=== PATIENT | female | born 1940 | race Two or more races ===

== ENCOUNTER 2016-12-17 00:21 | Inpatient (IN) | payer OTHER ==
[~2016-12-17] VITALS: Ht 160 cm; Wt 49.0 kg
--- NOTE | 2016-12-17 00:30 | NUR ---
TO BED 12 BIB [employer] AND [employer] PT FOUND WANDERING ON STREETS, PT DENIES ANY COMPLAINTS. PT AAOX4 NO ACUTE DISTRESS NOTED, RESP EVEN AND UNLABORED. PT DENIES PAIN OR DISCOMFORT AT THIS TIME.
[2016-12-17 01:01] LABS: BASOPHILS % (AUTO) 0.6 % (0.0-2.0); EOSINOPHILS # (AUTO) 0.6 /CMM (0.0-0.7); EOSINOPHILS % (AUTO) 7.6 % (0.0-6.0); HEMATOCRIT 24 % (33-45); HEMOGLOBIN 7.6 g/dL (11.5-14.8); LYMPHOCYTES # (AUTO) 2.1 /CMM (0.8-4.8); LYMPHOCYTES % (AUTO) 27.8 % (20.0-44.0); MEAN CORPUSCULAR HEMOGLOBIN 22 PG (26.0-33.0); MEAN CORPUSCULAR HGB CONC 32 g/dl (31.0-36.0); MEAN CORPUSCULAR VOLUME 70 fL (82-100); MONOCYTES # (AUTO) 0.8 /CMM (0.1-1.30); MONOCYTES % (AUTO) 11.3 % (2.0-12.0); NEUTROPHILS # (AUTO) 3.9 /CMM (1.8-8.9); NEUTROPHILS % (AUTO) 52.7 % (43.0-81.0); PLATELET COUNT (AUTO) 270 /CMM (150-450); RDW COEFFICIENT OF VARIATION 17.1 (11.5-15.0); RED BLOOD CELL COUNT(AUTO) 3.42 MIL/uL (4.0-5.2); WHITE BLOOD COUNT (AUTO) 7.4 K/uL (4.3-11.0)
[2016-12-17 01:08] LABS: CALCIUM, SERUM 8.6 mg/dL (8.5-10.1); CARBON DIOXIDE 25 mmol/L (21-32); CHLORIDE 100 mmol/L (98-107); CREATININE 0.9 mg/dL (0.6-1.3); GLUCOSE 84 mg/dL (74-106); POTASSIUM 3.6 mmol/L (3.5-5.1); SODIUM SERUM 135 mmol/L (136-145); UREA NITROGEN, BLOOD 26 mg/dL (7-18)
--- NOTE | 2016-12-17 01:13 | NUR ---
INOCENCIA LORENZOW AT BEDSIDE TO TOOTIE BUSTAMANTE.
[2016-12-17 01:14] LABS: ACETAMINOPHEN 0 ug/ml (10-30); ALANINE AMINOTRANSFERASE 19 U/L (12-78); ALBUMIN 3.8 g/dL (3.4-5.0); ALCOHOL, BLOOD < 3 mg/dL (0-0); ALKALINE PHOSPHATASE 70 U/L (46-116); ASPARTATE AMINOTRANSFERASE 32 U/L (15-37); BILIRUBIN,DIRECT 0.2 mg/dL (0.0-0.2); BILIRUBIN,TOTAL 0.7 mg/dL (0.2-1.0); SALICYLATE 0.3 mg/dL (2.8-20.0); TOTAL PROTEIN, SERUM 7.5 g/dL (6.4-8.2)
[2016-12-17 01:45] LABS: EOSINOPHILS % (MANUAL) 9 % (0-4); LYMPHOCYTES % (MANUAL) 28 % (16-48); MONOCYTES % (MANUAL) 7 % (0-11.0); NEUTROPHILS % (MANUAL) 56 (42-76)
[2016-12-17 02:46] LABS: APPEARANCE,URINE CLEAR (CLEAR); BILIRUBIN,URINE NEGATIVE (NEGATIVE); BLOOD, URINE NEGATIVE Ery/uL (NEGATIVE); COLOR,URINE YELLOW (YELLOW); KETONES,URINE NEGATIVE (NEGATIVE); LEUKOCYTE ESTERASE ,URINE 1+ (NEGATIVE); NITRITE, URINE NEGATIVE (NEGATIVE); PH,URINE 5.5 (5.0-8.0); PROTEIN,URINE NEGATIVE (NEGATIVE); UGLUCOSE NEGATIVE (NEGATIVE); UROBILINOGEN,URINE 0.2 EU/dL (0.2)
[2016-12-17 02:58] LABS: BACTERIA,URINE 3+ /HPF (None Seen); RBC,URINE NONE SEEN /HPF (0-2); SQUAMOUS EPITHELIAL CELL,UR Few /HPF (None Seen)
--- NOTE | 2016-12-17 03:09 | NUR ---
PT AAOX4 NO ACUTE DISTRESS NOTED, RESP EVEN AND UNLABORED.
--- NOTE | 2016-12-17 04:49 | NUR ---
INOCENCIA LORENZOW PLACE PT ON 5150 HOLD.
--- NOTE | 2016-12-17 04:55 | NUR ---
REPORT CALLED TO OLGA JARA.
[2016-12-17] MEDS ORDERED: MAG HYDROX/AL HYDROX/SIMETH 30 ML UDC PO PRN (06:00)
[2016-12-17] MEDS ORDERED: MAGNESIUM HYDROXIDE 30 ML UDC PO PRN (06:00)
[2016-12-17] MEDS ORDERED: LORAZEPAM 0.5 MG TABLET PO PRN (06:00)
[2016-12-17] MEDS ORDERED: ACETAMINOPHEN 325 MG TABLET PO PRN (06:00)
--- NOTE | 2016-12-17 06:30 | NUR ---
ADMISSION NOTES RN: ADMITTED THIS 76 Y/O FEMALE. PT IS ON 5150 HOLD FOR GD UNDER THE CARE OF DR BURTON AND DR GOODE. PER HOLD PT IS WANDERING AND TAKEN BY NEIGHBORS TO HELP WHEN THEY REPLIED. PT IS DEPRESSED, ANXIOUS, JUDGEMENT IS IMPAIRED POOR INSIGHT. PSYCH DX OF PSYCHOSIS. UPON FACE TO FACE ASSESSMENT PATIENT IS ALERT AND ORIENTED X1, CONFUSED, DISORGANIZED, DISORIENTED, DISHEVELED. V/S STABLE. PATIENT REFUSED TO SIGN ADMISSION PAPERWORK, COSIGNED BY 2 RN, BELONGINGS CHECKED, NO CONTRABAND. SKIN ASSESSMENT DONE. SKIN IS CLEAR AND INTACT EXCEPT FOR HEMORRHOIDS. WILL CONTINUE TO MONITOR FOR SAFETY AND BEHAVIOR [id number].
[2016-12-17 06:42] VITALS: BP 122/60
[2016-12-17 06:44] VITALS: BP 122/60
[2016-12-17 08:00] VITALS: BP 111/65
[2016-12-17 08:42] LABS: CHOLESTEROL 126 mg/dL (<200); HDL CHOLESTEROL 38 mg/dL (40-60); LDL 84 mg/dL (0-99); TRIGLYCERIDES 24 mg/dL (30-150)
--- NOTE | 2016-12-17 13:50 | NUR ---
RAVI spoke to Rosa from [facility] intake department to verify insurance line person for a review. She stated she will call and will find out. RAVI will follow up.
--- NOTE | 2016-12-17 14:03 | NUR ---
DR. ZELAYA NOTIFIED ABOUT THAT PT. IS UNDER HIS SERVICE AND AND GAVE ORDERS AND IRON PANEL AND FERRITIN AND HE WILL SEE PT. TOMORROW. Addendum: 12/17/16 at 1421 by JIMMY YOST RN ORTHODONTIC TREATMENT COORDINATOR MADE AWARE ABOUT THE HEMOGLOBIN OF 7.6 NAD MADE AWARE OF THE RECTAL TISSUE PROTRUDES.
[2016-12-17 14:38] LABS: IRON, SERUM 28 ug/dl (50-175); TOTAL IRON BINDING CAPACITY 462 ug/dl (250-450)
[2016-12-17 14:55] LABS: FERRITIN 16 ng/mL (8-388)
--- NOTE | 2016-12-17 15:35 | NUR ---
UR Update: Red Lee at [facility] admitting, SW to follow up on Tuesday December 20, 2016 Insurance: [employer] NET SENIOR IPA : LOI PERRY Assigned: MAHENDRA RODRIGUEZ PH: Tracking # : [id number] APPROVED FROM 12/17/16---12/20/16
[2016-12-17 16:00] VITALS: BP_SYST 142; BP_SYST 171; BP_DIAS 62; BP_DIAS 63
[2016-12-17] MEDS: busPIRone 5 MG TABLET PO SCH (16:50)
--- NOTE | 2016-12-17 18:19 | NUR ---
Notified Dr. Christianson about the labs. Iron 28, Ferritin 16 and TIBC 462 and % saturation 6. With an order of Ferrous Sulfate 325 mg po BID.
[2016-12-17 20:00] VITALS: BP 116/60
[2016-12-17] MEDS: FERROUS SULFATE (325 MG) 325 MG/TAB TABLET PO SCH (20:16)
--- NOTE | 2016-12-17 20:22 | NUR ---
RN GPS NOTES FREOUS SULFATE 325 MG PO GIVEN AT 2016 / REASON DELIVERD BY PHARMACY AT THIS TIME .
[2016-12-17] MEDS: DONEPEZIL 5 MG TABLET PO SCH (21:24)
--- NOTE | 2016-12-18 06:31 | NUR ---
RN GPS NOTE PT .REMAINED IN STABLE CONDITION RESTING IN HER BED ,NO ACUTE DISTRESS NOTED ATTENDED ALL NEEDS AND ANTICIPATED , DENIES SI/ HI AT THIS TIME, ENDORSE TO NEXT SHIFT NURSE. WILL ENDORSE TO NEXT SHIFT FOR CONTINUITY OF CARE
--- NOTE | 2016-12-18 06:50 | NUR ---
RN GPS NOTE PT .REMAINED IN STABLE CONDITION RESTING IN HIS BED ,NO ACUTE DISTRESS NOTED ATTENDED ALL NEEDS AND ANTICIPATED , DENIES SI/ HI AT THIS TIME, ENDORSE TO NEXT SHIFT NURSE. WILL ENDORSE TO NEXT SHIFT FOR CONTINUITY OF CARE
[2016-12-18 07:21] LABS: BASOPHILS % (AUTO) 0.4 % (0.0-2.0); EOSINOPHILS # (AUTO) 0.5 /CMM (0.0-0.7); HEMATOCRIT 25 % (33-45); LYMPHOCYTES # (AUTO) 1.5 /CMM (0.8-4.8); LYMPHOCYTES % (AUTO) 23.3 % (20.0-44.0); MEAN CORPUSCULAR HEMOGLOBIN 23 PG (26.0-33.0); MEAN CORPUSCULAR HGB CONC 32 g/dl (31.0-36.0); MEAN CORPUSCULAR VOLUME 71 fL (82-100); MONOCYTES # (AUTO) 0.6 /CMM (0.1-1.30); NEUTROPHILS # (AUTO) 3.7 /CMM (1.8-8.9); NEUTROPHILS % (AUTO) 59.3 % (43.0-81.0); PLATELET COUNT (AUTO) 302 /CMM (150-450); RDW COEFFICIENT OF VARIATION 17.5 (11.5-15.0); RED BLOOD CELL COUNT(AUTO) 3.57 MIL/uL (4.0-5.2); WHITE BLOOD COUNT (AUTO) 6.3 K/uL (4.3-11.0)
[2016-12-18 07:35] LABS: ALANINE AMINOTRANSFERASE 21 U/L (12-78); ALBUMIN 3.5 g/dL (3.4-5.0); ALKALINE PHOSPHATASE 66 U/L (46-116); ASPARTATE AMINOTRANSFERASE 31 U/L (15-37); BILIRUBIN,TOTAL 0.3 mg/dL (0.2-1.0); CALCIUM, SERUM 8.8 mg/dL (8.5-10.1); CARBON DIOXIDE 26 mmol/L (21-32); CHLORIDE 106 mmol/L (98-107); CREATININE 0.7 mg/dL (0.6-1.3); GLUCOSE 81 mg/dL (74-106); POTASSIUM 4.3 mmol/L (3.5-5.1); SODIUM SERUM 140 mmol/L (136-145); TOTAL PROTEIN, SERUM 7.3 g/dL (6.4-8.2); UREA NITROGEN, BLOOD 19 mg/dL (7-18)
[2016-12-18 08:00] VITALS: BP 135/69
[2016-12-18 08:32] LABS: EOSINOPHILS % (MANUAL) 5 % (0-4); LYMPHOCYTES % (MANUAL) 21 % (16-48); MONOCYTES % (MANUAL) 6 % (0-11.0); NEUTROPHILS % (MANUAL) 68 (42-76)
[2016-12-18] MEDS: busPIRone 5 MG TABLET PO SCH ×2 (08:33→17:23)
[2016-12-18] MEDS: FERROUS SULFATE (325 MG) 325 MG/TAB TABLET PO SCH ×2 (08:33→17:44)
[2016-12-18 16:00] VITALS: BP 126/59
[2016-12-18 20:00] VITALS: BP 137/67
--- NOTE | 2016-12-18 20:00 | NUR ---
RN INITIAL NOTES: PT AMBULATING IN THE HALLWAY, PT IS A/O X2, COOPERATIVE, RESPIRATION EVEN AND UNLABORED, PT CAN DE REDIRECTED, PT DENIES ANY SI/HI, PT NOTED TO HAVE LIMITED CONCENTRATION, POOR JUDGMENT. ALSO HAS PERIODIC EPISODE OF WANDERING AROUND. 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
[2016-12-18] MEDS: DONEPEZIL 5 MG TABLET PO SCH (22:02)
--- NOTE | 2016-12-19 06:33 | NUR ---
rn closing notes: pt in bed, awake, remains a/o x2, med complaint, denies any pain or discomfort at this time, no untoward event happened throughout the shift, vs remains stable, needs attended, will endorse to day rn for wendie.
[2016-12-19 08:00] VITALS: BP 129/70
[2016-12-19] MEDS: busPIRone 5 MG TABLET PO SCH ×3 (09:00→16:54)
[2016-12-19] MEDS: FERROUS SULFATE (325 MG) 325 MG/TAB TABLET PO SCH ×3 (09:00→16:54)
[2016-12-19 16:00] VITALS: BP 111/65
[2016-12-19 20:07] VITALS: BP 122/66
[2016-12-19] MEDS: DONEPEZIL 5 MG TABLET PO SCH (22:00)
--- NOTE | 2016-12-19 22:00 | NUR ---
GPS RN: PATIENT REFUSED WEEKLY SKIN ASSESSMENT PICTURE TAKING, PER PATIENT, "I AM TOO ASHAMED OF DOING THAT IN FRONT OF YOU" TOLD THE PATIENT THAT IT WILL BE DONE WITH A FEMALE NURSE. PATIENT STILL REFUSED. WILL ENCOURAGE PATIENT IN THE MORNING.
--- NOTE | 2016-12-19 22:55 | NUR ---
GPS RN NOTES: NOTED THIS PATIENT TO BE PARANOID AND ANXIOUS DURING Q15 MIN CHECKS, ENCOURAGED PATIENT TO VERBALIZE FEELING AND CONCERNS. PATIENT REFUSED HER 2200 SCHEDULED MED- ARICEPT 5MG PO QHS, PER PATIENT "I DON'T NEED THAT MEDICATION. WE NEED TO BE ALERT FROM ALL THE PEOPLE HERE, THE MEN, WOMEN." REASSURED PATIENT OF HER SAFETY.ENCOURAGED HER TO COMPLY WITH MEDICATIONS. WILL CONTINUE TO MONITOR PATIENT.
[2016-12-20 08:00] VITALS: BP 115/62
[2016-12-20] MEDS: busPIRone 5 MG TABLET PO SCH ×3 (08:57→17:33)
[2016-12-20] MEDS: FERROUS SULFATE (325 MG) 325 MG/TAB TABLET PO SCH ×2 (08:58→16:48)
--- NOTE | 2016-12-20 10:07 | NUR ---
UR Note: barnworker groom received voicemail from Elmira Powers [facility] [phone]. She said she had not received medication and information on this pt. This proposal manager writer left clinical review on Elmira's voicemail at 1008. Also advised her that Mary Kay SNOW was assigned bilingual social worker and provided her with Mary Kay's direct line.
--- NOTE | 2016-12-20 14:30 | NUR ---
UR update: lawn care worker received a call from Elmira Powers [facility] [phone] requesting more clinical information. informed Elmira that patient stated that she has no place to live and was unable to provide any contact information. Elmira provided Sw with an address that is linked to her medicare [address] [place] [id number] but was unable to provide any contact information. Elmira also spoke to patient's psychiatrist Dr. Varela to obtain more information regarding patient's treatment plan. Elmira informed Edmund that patient will be covered through today and tomorrow and would like a peer to peer review scheduled for tomorrow 12/21/16. lawn care worker will follow-up.
[2016-12-20 16:00] VITALS: BP 122/51
--- NOTE | 2016-12-20 16:05 | NUR ---
Initial Discharge Note: Patient was unable to provide an address and stated that she currently does not have a place to live. Per Elmira Powers, [place] [phone] she has two addresses on file [address] [place] [address] and [address] [facility]. [address] [place] [address]. However, patient stated that she does not have a place to live. cloth printing utility worker will help form a safe and proper discharge.
--- NOTE | 2016-12-20 17:17 | NUR ---
GPS/RN PATIENT REFUSED 0900 MEDICATION X 3, EXPLAINED RISKS AND BENEFITS, CONTINUES TO REFUSE, WILL CONTINUE TO ENCOURAGE TO COMPLY WITH MD REGIMEN.
[2016-12-20] MEDS ORDERED: LEVOFLOXACIN (250MG) 250 MG TABLET PO SCH (18:00)
[2016-12-20 19:50] VITALS: BP 115/56
[2016-12-20] MEDS: DONEPEZIL 5 MG TABLET PO SCH (21:33)
[2016-12-20] MEDS: QUETIAPINE FUMARATE 25 MG TABLET PO SCH (21:33)
[2016-12-21 08:00] VITALS: BP 138/69
[2016-12-21] MEDS: busPIRone 5 MG TABLET PO SCH ×2 (09:00→16:45)
[2016-12-21] MEDS: FERROUS SULFATE (325 MG) 325 MG/TAB TABLET PO SCH ×2 (09:00→16:45)
--- NOTE | 2016-12-21 09:00 | NUR ---
GPS/RN PATIENT SELECTIVE WITH MEDICATIONS, REFUSED BUSBAR AND IRON TABLET, WILL CONTINUE TO ENCOURAGE TO COMPLY WITH MD REGIMEN.
[2016-12-21] MEDS: CEPHALEXIN MONOHYDRATE 250 MG CAPSULE PO SCH ×4 (09:45→20:47)
--- NOTE | 2016-12-21 09:55 | NUR ---
structural metal worker attempted to contact Karina ([phone]) to schedule the peer to peer review requested by Elmira Powers [facility] [phone]. However, Karina was unavailable, left a detailed message with her contact information and Dr. Carmel vargas. Edmund will follow-up. Addendum: 12/21/16 at 1017 by SOLOMON RODRIGUES Karina ([phone]) from [facility] contacted Edmund to schedule the jyiu-ck-ecju review. Hdos-px-[id number] review is scheduled for 4:00pm with Dr. Carmona ([phone]).
--- NOTE | 2016-12-21 10:17 | NUR ---
UR Update: Edmund attempted to contact Elmira Gio [facility] [phone]. However, she was unavailable. Edmund left her a detailed message with her contact information. residential support worker will follow-up.
--- NOTE | 2016-12-21 10:37 | NUR ---
Edmund contacted the [place] Police department [phone]) [address] [place] [address]. Edmund spoke to caustic operator [phone] who stated that they were going to send a patrol unit here to [facility] and follow-up with the social services manager.
--- NOTE | 2016-12-21 13:00 | NUR ---
GPS/RN PATIENT REFUSED KEFLEX X 3, EXPLAINED RISKS AND BENEFITS, WILL CONTINUE TO ENCOURAGE TO COMPLY WITH MD REGIMEN.
--- NOTE | 2016-12-21 14:25 | NUR ---
The [place] Police department (Officer Jeyson, Officer Kendal, Officer Yana) ([phone]) [address] [place] [address] came to [facility] to speak to regarding patient. They took the patient's information and discovered that there was a missing persons report filed for the patient. They had the [facility] police do a welfare check on the address [address] [address]. Officer Kendal stated that the address was a board and [facility] and the person in charge is Lida Preston ([phone]/ [phone]/ [phone]/ [phone]) dredge worker will follow-up.
--- NOTE | 2016-12-21 15:08 | NUR ---
Sw attempted to contact Lida Preston ([phone]/ [phone]/ [phone]/ [phone]) and she was unavailable. case worker left her a detailed voicemail with her contact information. case worker was able to speak to Gloria Preston ([phone]) who stated that patient rents a room from Lida Preston and that patient had left while Lida was at work and had not returned so they filed a missing person report stating that she was worried about her. case worker gave Gloria her contact information and asked if she could let Lida Preston know that Sw would like to speak to her. case worker will follow-up.
[2016-12-21 16:09] VITALS: BP 129/54
--- NOTE | 2016-12-21 16:46 | NUR ---
GPS/RN PATIENT ADAMANTLY REFUSED 1700 MEDICATIONS X 3, EXPLAINED RISKS AND BENEFITS, BUT CONTINUES TO REFUSE, WILL CONTINUE TO ENCOURAGE TO COMPLY WITH MD REGIMEN.
--- NOTE | 2016-12-21 19:45 | NUR ---
GPS RN NOTES RECEIVED INSIDE HER ROOM,A/O X2,CONFUSED,FEAR OF BEING ALONE,CAN BE REDIRECTED,FOLLOW INSTRUCTION.WILL CONTINUE TO MONITOR BEHAVIOR.
[2016-12-21 20:02] VITALS: BP 136/69
[2016-12-21] MEDS: DONEPEZIL 5 MG TABLET PO SCH (21:39)
[2016-12-21] MEDS: QUETIAPINE FUMARATE 25 MG TABLET PO SCH (21:39)
--- NOTE | 2016-12-21 22:04 | NUR ---
GPS RN NOTES REFUSED DUE PO MEDS.CLAIMED SHE WANTS IT TOMORROW.
--- NOTE | 2016-12-22 06:55 | NUR ---
GPS RN NOTES SLEPT WELL,STILL VERBALIZING SHE'S GOING HOME TODAY,WANTS TO SEE THE DOCTOR,OTHERWISE FOLLOW INSTRUCTION.
[2016-12-22 08:00] VITALS: BP 118/63
[2016-12-22] MEDS: FERROUS SULFATE (325 MG) 325 MG/TAB TABLET PO SCH ×2 (09:00→17:00)
[2016-12-22] MEDS: busPIRone 5 MG TABLET PO SCH ×2 (09:00→17:00)
--- NOTE | 2016-12-22 09:00 | NUR ---
GPS SALOME GARCIA NOTES PT. REFUSED 0900 IRON TABLET AND BUSPIRONE. MEDICATION EDUCATION WAS PROVIDED TO PT. RISKS AND BENEFITS WERE DISCUSSED WITH PT. PT. REMAINS ADAMANT IN HER DIVISION. WILL CONTINUE TO MONITOR.
[2016-12-22] MEDS: CEPHALEXIN MONOHYDRATE 250 MG CAPSULE PO SCH ×4 (09:18→21:22)
--- NOTE | 2016-12-22 09:46 | NUR ---
Called Elizabeth ([phone]) to schedule [id number] review with Dr. Carmona. Ctqq-sz-[id number] was set for 12/22/2016 at 3:30PM. Dr. Varela to call Dr. Carmona ([phone]) at this time. Dr. Varela notified.
[2016-12-22 16:35] VITALS: BP 123/55
[2016-12-22 20:00] VITALS: BP 117/61
[2016-12-22] MEDS: DONEPEZIL 5 MG TABLET PO SCH (21:22)
[2016-12-22] MEDS: QUETIAPINE FUMARATE 25 MG TABLET PO SCH (21:22)
--- NOTE | 2016-12-23 06:38 | NUR ---
RN GPS NOTE PT IN BED, COMFORTABLY RESTING AT THIS TIME. NO ACUTE DISTRESS NOTED, ALL NEEDS ATTENDED AND ANTICIPATED , DENIES SI/ HI. SAFETY PRECAUTIONS OBSERVED. WILL ENDORSE TO NEXT SHIFT FOR CONTINUITY OF CARE .
[2016-12-23 08:00] VITALS: BP 114/58
[2016-12-23] MEDS: FERROUS SULFATE (325 MG) 325 MG/TAB TABLET PO SCH ×3 (08:35→18:43)
[2016-12-23] MEDS: busPIRone 5 MG TABLET PO SCH ×2 (08:35→18:43)
[2016-12-23] MEDS: CEPHALEXIN MONOHYDRATE 250 MG CAPSULE PO SCH ×5 (08:35→21:55)
[2016-12-23 16:00] VITALS: BP 126/55
--- NOTE | 2016-12-23 16:59 | NUR ---
Sw attempted to contact patient's son Fabian ([phone]) however, he was unavailable. The voice mailbox was full and Edmund was unable to leave a message. Edmund will attempt again later.
--- NOTE | 2016-12-23 17:02 | NUR ---
Sw attempted to contact Lida Preston ([phone]/ [phone]/ [phone]/ [phone]) and she was unavailable. drop board worker left her a detailed voicemail with her contact information. drop board worker will attempt again later.
--- NOTE | 2016-12-23 17:03 | NUR ---
Sw helped patient contact the Social Security Office to find out how much the patient was receiving from SSI monthly. The Social Security Office was able to confirm that patient receives (1,885/month).
[2016-12-23 20:00] VITALS: BP 126/68
[2016-12-23] MEDS: DONEPEZIL 5 MG TABLET PO SCH (21:51)
[2016-12-23] MEDS: TEMAZEPAM 7.5 MG CAPSULE PO PRN (21:51)
[2016-12-23] MEDS: QUETIAPINE FUMARATE 25 MG TABLET PO SCH (21:54)
[2016-12-24] MEDS: FERROUS SULFATE (325 MG) 325 MG/TAB TABLET PO SCH ×2 (08:22→17:07)
[2016-12-24] MEDS: CEPHALEXIN MONOHYDRATE 250 MG CAPSULE PO SCH ×4 (08:22→20:53)
[2016-12-24] MEDS: busPIRone 5 MG TABLET PO SCH ×2 (08:22→17:07)
[2016-12-24 08:57] VITALS: BP 132/60
--- NOTE | 2016-12-24 11:02 | NUR ---
Edmund faxed referral packet to Misa (fax: [phone]/ phone: [phone]) from the [facility] program. Edmund will follow-up.
--- NOTE | 2016-12-24 11:05 | NUR ---
Sw spoke to Lida Mohan ([phone]/ [phone]/ [phone]/ [phone]) who confirmed that patient rents a room from her for $400/month. Per Lida, patient can return home and she will be able to pick her up. Edmund will follow-up.
--- NOTE | 2016-12-24 11:06 | NUR ---
Edmund faxed initial review packet to Dorita from [facility] (fax: [phone]/phone: [phone]) [address] [address] [address]. Edmund will follow-up.
[2016-12-24 16:00] VITALS: BP 162/81
--- NOTE | 2016-12-24 17:20 | NUR ---
Edmund spoke to Misa (fax: [phone]/ phone: [phone]) from the [facility] program who stated that based on the patient's referral she does not qualify for the FSP program as she does not have an extensive psychiatric history. Misa stated that she would refer the patient to their RRR (Reintegration Recovery Resiliency) program in which she would be assigned a rn field case manager. Misa stated that she would follow-up on Tuesday to confirm if she would be able to receive any of their services due to the fact that she has an HMO insurance. scrap metal processing worker will follow-up.
[2016-12-24 20:00] VITALS: BP 121/61
[2016-12-24] MEDS: DONEPEZIL 5 MG TABLET PO SCH (20:53)
[2016-12-24] MEDS: QUETIAPINE FUMARATE 25 MG TABLET PO SCH (20:53)
--- NOTE | 2016-12-25 07:30 | NUR ---
RN GPS OPENING NOTE PT IN BED, SITTING UP COMFORTABLY, A&OX2. NO SOB, BREATHING ON ROOM AIR. NO ACUTE DISTRESS NOTED, ATTENDED ALL NEEDS AND ANTICIPATED , DENIES SI/ HI AT THIS TIME. SAFETY PRECAUTIONS OBSERVED. WILL CONTINUE TO MONITOR. CALL LIGHT IS WITHIN REACH.
[2016-12-25 08:00] VITALS: BP 113/53
[2016-12-25] MEDS: CEPHALEXIN MONOHYDRATE 250 MG CAPSULE PO SCH ×4 (09:58→21:34)
[2016-12-25] MEDS: FERROUS SULFATE (325 MG) 325 MG/TAB TABLET PO SCH ×2 (09:58→17:57)
[2016-12-25] MEDS: busPIRone 5 MG TABLET PO SCH ×2 (09:59→17:57)
--- NOTE | 2016-12-25 11:56 | NUR ---
RN GPS NOTES SIGNED DISCHARGE PAPERS, AND VERBALIZED UNDERSTANDING OF DISCHARGE INSTRUCTIONS.
[2016-12-25 16:00] VITALS: BP 127/62
--- NOTE | 2016-12-25 18:52 | NUR ---
RN GPS CLOSING NOTE PT IN BED, SITTING UP COMFORTABLY, A&OX2. NO SOB, BREATHING ON ROOM AIR. NO ACUTE DISTRESS NOTED, ATTENDED ALL NEEDS AND ANTICIPATED. SAFETY PRECAUTIONS OBSERVED. WILL CONTINUE TO MONITOR. CALL LIGHT IS WITHIN REACH.
[2016-12-25 20:00] VITALS: BP 142/54
[2016-12-25] MEDS: TEMAZEPAM 7.5 MG CAPSULE PO PRN (21:34)
[2016-12-25] MEDS: DONEPEZIL 5 MG TABLET PO SCH (21:34)
[2016-12-25] MEDS: QUETIAPINE FUMARATE 25 MG TABLET PO SCH (21:34)
[2016-12-26 08:00] VITALS: BP 123/75
[2016-12-26] MEDS: FERROUS SULFATE (325 MG) 325 MG/TAB TABLET PO SCH ×2 (08:36→16:35)
[2016-12-26] MEDS: busPIRone 5 MG TABLET PO SCH ×2 (08:36→16:35)
[2016-12-26] MEDS: CEPHALEXIN MONOHYDRATE 250 MG CAPSULE PO SCH ×4 (08:36→21:17)
[2016-12-26 16:00] VITALS: BP 100/57
[2016-12-26 20:00] VITALS: BP 134/58
[2016-12-26] MEDS: DONEPEZIL 5 MG TABLET PO SCH (21:17)
[2016-12-26] MEDS ORDERED: QUETIAPINE FUMARATE 25 MG TABLET PO SCH (22:00)
[2016-12-27 08:00] VITALS: BP 120/59
[2016-12-27] MEDS: FERROUS SULFATE (325 MG) 325 MG/TAB TABLET PO SCH ×2 (08:25→16:36)
[2016-12-27] MEDS: CEPHALEXIN MONOHYDRATE 250 MG CAPSULE PO SCH ×3 (08:25→16:36)
[2016-12-27] MEDS: busPIRone 5 MG TABLET PO SCH ×2 (08:25→16:36)
--- NOTE | 2016-12-27 10:55 | NUR ---
Edmund spoke to Dorita from [facility] (fax: [phone]/phone: [phone]) [address] [facility] [facility] [address] who stated that they cannot accept the patient at this time as there was an outbreak in the facility and they are not accepting new patient's at the moment.
--- NOTE | 2016-12-27 10:58 | NUR ---
Discharge Note: Patient will be discharged home [address] [place] [address] and [address] [place] [address] and patients friend Lida Preston ([phone]) will be notified and will pick her up via private vehicle. Patient and patient's friend were agreeable with the discharge plan. Patient's mood and affect are appropriate. Patient denies suicidal and homicidal ideations. Patient was referred to the [facility] program. Misa (fax: [phone]/ phone: [phone]) from the [facility] program stated that she would refer the patient to their RRR (Reintegration Recovery Resiliency) program in which she would be assigned a assistant case manager. Edmund also contacted psychiatry office of [facility] ([phone]), [facility] ([phone]), and [facility] Dawson MD ([phone]). However, they requested that patient call to follow-up and schedule an appointment. Sw will provide patient with the referrals. Edmund faxed home health order to Mamta from [facility] (phone: [phone]/ fax: [phone]). Facilitated info to IDT team who are in agreement with discharge arrangement. The multidisciplinary exitcare form was done, printed, signed, and given to the patient.
[2016-12-27 16:11] VITALS: BP 113/61
--- NOTE | 2016-12-27 16:38 | NUR ---
Edmund filed an APS report 12/27/16 Intake ID number: [id number]
--- NOTE | 2016-12-27 17:42 | NUR ---
FLAT HAMMERER NOTES 71 YEAR OLD FEMALE DISCHARGED TO HOME IN A STABLE CONDITION. COMPLAINT WITH MEDICATIONS, COOPERATIVE WITH TREATMENT PLANS. PATIENT DENIES SI/HI AND INSTRUCTED TO GO TO THE CLOSEST ER IF DEVELOPING SI/HI. BEHAVIOR IMPROVED, PSYCHIATRIC TX PLANS MET, MEDICAL TX PLANS DEFERRED FOR CONTINUAL MONITORING. EDUCATED PATIENT ABOUT AFTER CARE PLAN (EXIT-CARE) AND COPY PROVIDED. RETURNED PERSONAL BELONGINGS TO PATIENT. MEDICATIONS RECONCILED WITH DR BURTON (PSYCHIATRIC) AND DR FARIA ([facility]). PATIENT SIGNED DISCHARGE PAPERWORK. WOUND PICTURE TAKEN AND DOCUMENTED IN CHART. DR ZELAYA MADE AWARE OF RECTAL TISSUE PROTRUDES, PATIENT WAS CLEARED FOR DISCHARGE. PATIENT LEFT THE UNIT AT 1742 WITH WITH A FAMILY MEMBER, ALFREDO ORTA, VIA A PRIVATE CAR. PATIENT'S PSYCHIATRIC: [facility]. [id number] [facility] [address] MEDICATION RECONCILIATION FAXED TO [facility] ATTN MIESHA AT [phone] LOCATED AT [address] [place] [address]. [facility] [address]. TEL [phone] UNABLE TO OBTAIN PRIMARY CARE PHYSICIAN AT THIS TIME
--- NOTE | 2016-12-28 10:08 | NUR ---
Edmund Laguna ([phone]) case manger for [facility] a voicemail with the discharge summary. Addendum: 12/28/16 at 1010 by SOLOMON RODRIGUES UR Update: Edmund Laguna ([phone]) case manger for [facility] a voicemail with the discharge summary.
--- NOTE | 2016-12-28 10:11 | NUR ---
Edmund received a call from Lida Preston ([phone]) who stated that she wanted to find a primary care physician for the patient a doctor that will take her insurance. Edmund contacted [facility] ([phone]) and was able to find patients primary care physician Dr. Cisco Myers ([phone]) [address], [place] [address]. Edmund provided Ayaka Preston the information and she was content with the information provided.
== END 2016-12-27 17:42 | disposition home or self-care (01) | DRG 885 ==
LOC: ER 00:25 → GPS 04:55
PROVIDERS: ADMIT Psychiatry & Neurology Psychosomatic Medicine; ATTEND Psychiatry & Neurology Psychosomatic Medicine
DX: F29 Unspecified psychosis not due to a substance or known physiological condition (principal); E87.1 Hypo-osmolality and hyponatremia; N39.0 Urinary tract infection, site not specified; D50.9 Iron deficiency anemia, unspecified; E78.5 Hyperlipidemia, unspecified; F03.90 Unspecified dementia, unspecified severity, without behavioral disturbance, psychotic disturbance, mood disturbance, and anxiety; Z59.0 Homelessness; K62.3 Rectal prolapse; R42 Dizziness and giddiness
CPT/HCPCS: 36415; 70450-TC; 80048-TC; 80053-TC; 80061-TC; 80076-TC; 80305; 81000-TC; 82728-TC; 83540-TC; 85025-TC; 87081-TC; 87086-TC; 87186-TC; 97001-TC; A4606; G0480; Z7610